=== PATIENT | male | born 1950 | race Caucasian/White ===

== ENCOUNTER 2022-10-13 00:12 | Inpatient (IN) | payer MEDICARE, MEDICAID ==
[~2022-10-13] VITALS: Ht 167.6 cm; Wt 74.4 kg
[2022-10-13] MEDS ORDERED: NITROGLYCERIN 0.4MG TABLET SL SL PRN (00:30)
[2022-10-13] MEDS ORDERED: ASPIRIN 81MG TABLET PO ONE (00:30)
[2022-10-13 00:39] LABS: BASOPHILS % 0.7 % (0.0-2.0); EOSINOPHILS % 2.8 % (0.0-5.0); HEMATOCRIT. 44.9 % (42.0-52.0); HEMOGLOBIN. 15.6 g/dL (14.0-18.0); LYMPHOCYTES % 50.3 % (20.0-50.0); MEAN CORPUSCULAR HEMOGLOBIN 33.1 pg (28.0-32.0); MEAN CORPUSCULAR VOLUME 95.6 fL (80.0-94.0); MEAN PLATELET VOLUME 8.2 fl (7.4-10.4); MONOCYTES % 10.9 % (2.0-8.0); NEUTROPHILS % 35.3 % (40.0-76.0); PLATELET 293 x1000/uL (130-400); RED CELL DISTRIBUTION WIDTH 13.4 % (11.6-14.6)
[2022-10-13 00:46] LABS: CHLORIDE 103 mEq/L (98-107)
[2022-10-13] MEDS ORDERED: DEXTROSE 50% WATER 50ML SYRINGE IV PRN (03:00)
[2022-10-13] MEDS ORDERED: MAGNESIUM/ALUMINUM HYDROXIDE/SIMETHICONE 30ML UDC PO PRN (03:00)
[2022-10-13] MEDS ORDERED: ZOLPIDEM TARTRATE 5MG TABLET PO PRN (03:00)
[2022-10-13] MEDS ORDERED: ONDANSETRON HCL 4MG/2ML INJ IV PRN (03:00)
[2022-10-13] MEDS ORDERED: MORPHINE SULFATE 4 MG/ML CPJ (NOT FOR IM USE) IV PRN (03:00)
[2022-10-13] MEDS ORDERED: DIPHENHYDRAMINE 50MG/ML VIAL IV PRN (03:00)
[2022-10-13] MEDS ORDERED: HYDRALAZINE 20MG/ML VIAL IV PRN (03:00)
[2022-10-13] MEDS ORDERED: CLONIDINE 0.1MG TABLET PO PRN (03:00)
[2022-10-13] MEDS ORDERED: ACETAMINOPHEN 325MG TABLET PO PRN (03:00)
[2022-10-13] MEDS ORDERED: ASPIRIN 81MG TABLET PO NR (03:30)
[2022-10-13 03:55] VITALS: BP 159/89
[2022-10-13] MEDS: SODIUM CHLORIDE 0.9% INJ 3ML FLUSH IVF SCH ×3 (06:03→20:44)
[2022-10-13] MEDS: BLOOD SUGAR DIAGNOSTIC STRIP TEST SCH ×4 (06:33→20:40)
[2022-10-13] MEDS: INSULIN LISPRO 100 UNITS/ML SUBCUT SCH ×4 (07:20→20:42)
[2022-10-13 08:12] VITALS: BP 152/78
[2022-10-13] MEDS: AMLODIPINE 5MG TABLET PO SCH ×2 (08:50→20:40)
[2022-10-13] MEDS: ASPIRIN 81MG EC TABLET PO SCH (08:51)
[2022-10-13] MEDS ORDERED: ENOXAPARIN 30MG/0.3ML SYR SUBCUT SCH (09:00)
[2022-10-13 11:50] VITALS: BP 148/86
[2022-10-13] MEDS ORDERED: LIDOCAINE HCL/PF 1% 10 MG/ML 5ML VIAL ONE (13:11)
[2022-10-13] MEDS ORDERED: VERAPAMIL HCL 2.5 MG/1 ML 2ML VIAL IV ONE (13:11)
[2022-10-13] MEDS ORDERED: IODIXANOL 320MG/ML 100 ML BOTTLE IV ONE (13:11)
[2022-10-13] MEDS ORDERED: DIPHENHYDRAMINE 50MG/ML VIAL ONE (13:11)
[2022-10-13] MEDS ORDERED: HEPARIN 1000 UNITS/ML 10ML ONE (13:12)
[2022-10-13 13:26] LABS: HEPATITIS B SURFACE ANTIGEN NEGATIVE
[2022-10-13] MEDS ORDERED: FENTANYL CITRATE/PF 50MCG/ML 2ML VIAL ONE (13:49)
[2022-10-13] MEDS ORDERED: MIDAZOLAM HCL 2 MG/2 ML VIAL ONE (13:49)
[2022-10-13] MEDS ORDERED: ATROPINE SULFATE 1MG/10ML SYR IV PRN (15:00)
[2022-10-13] MEDS ORDERED: SODIUM CHLORIDE 0.45% 250 ML IV SCH (15:00)
[2022-10-13] MEDS ORDERED: SODIUM CHLORIDE 0.45% 250 ML IV ONE (15:15)
[2022-10-13 15:59] VITALS: BP 143/81
[2022-10-13 20:00] VITALS: BP 134/67
[2022-10-13] MEDS: ATORVASTATIN CALCIUM 20MG TABLET PO SCH (20:40)
[2022-10-13] MEDS: CARVEDILOL 12.5MG TABLET PO SCH (20:40)
[2022-10-14] VITALS: BP 112/66
[2022-10-14 04:08] VITALS: BP 131/94
[2022-10-14] MEDS ORDERED: METF-874 PO (04:17)
[2022-10-14] MEDS: BLOOD SUGAR DIAGNOSTIC STRIP TEST SCH ×4 (06:35→21:00)
[2022-10-14] MEDS: INSULIN LISPRO 100 UNITS/ML SUBCUT SCH ×4 (06:35→21:00)
[2022-10-14] MEDS: SODIUM CHLORIDE 0.9% INJ 3ML FLUSH IVF SCH ×3 (06:36→21:32)
[2022-10-14 06:56] LABS: BASOPHILS % 0.8 % (0.0-2.0); EOSINOPHILS % 2.1 % (0.0-5.0); HEMATOCRIT. 46.4 % (42.0-52.0); HEMOGLOBIN. 16.3 g/dL (14.0-18.0); LYMPHOCYTES % 35.8 % (20.0-50.0); MEAN CORPUSCULAR HEMOGLOBIN 33.2 pg (28.0-32.0); MEAN CORPUSCULAR VOLUME 94.4 fL (80.0-94.0); MEAN PLATELET VOLUME 8.4 fl (7.4-10.4); MONOCYTES % 10.4 % (2.0-8.0); NEUTROPHILS % 50.9 % (40.0-76.0); PLATELET 304 x1000/uL (130-400); RED BLOOD CELL COUNT 4.92 mill/uL (4.7-6.1); RED CELL DISTRIBUTION WIDTH 13.5 % (11.6-14.6)
[2022-10-14 08:00] VITALS: BP 114/59
[2022-10-14 08:05] LABS: CHLORIDE 103 mEq/L (98-107)
[2022-10-14] MEDS: ASPIRIN 81MG EC TABLET PO SCH (08:37)
[2022-10-14] MEDS: AMLODIPINE 5MG TABLET PO SCH ×2 (08:37→21:30)
[2022-10-14] MEDS: CARVEDILOL 12.5MG TABLET PO SCH ×2 (08:37→21:30)
[2022-10-14] MEDS: ENOXAPARIN 40MG/0.4ML SYR SUBCUT SCH (08:38)
[2022-10-14 12:00] VITALS: BP 115/61
[2022-10-14] MEDS ORDERED: NALOXONE HCL 0.4MG/ML VIAL IV PRN (15:00)
[2022-10-14 16:00] VITALS: BP 112/69
[2022-10-14 19:59] VITALS: BP 131/45
[2022-10-14] MEDS: ATORVASTATIN CALCIUM 20MG TABLET PO SCH (21:30)
[2022-10-15] VITALS: BP 117/81
[2022-10-15] MEDS: ACETAMINOPHEN 325MG TABLET PO PRN ×2 (02:54→16:09)
[2022-10-15 03:59] VITALS: BP 109/67
[2022-10-15] MEDS: SODIUM CHLORIDE 0.9% INJ 3ML FLUSH IVF SCH ×2 (06:00→13:31)
[2022-10-15] MEDS: BLOOD SUGAR DIAGNOSTIC STRIP TEST SCH ×2 (06:50→11:50)
[2022-10-15] MEDS: INSULIN LISPRO 100 UNITS/ML SUBCUT SCH ×2 (06:59→13:15)
[2022-10-15 08:00] VITALS: BP 131/75
[2022-10-15] MEDS: CARVEDILOL 12.5MG TABLET PO SCH (08:43)
[2022-10-15] MEDS: ASPIRIN 81MG EC TABLET PO SCH (08:43)
[2022-10-15] MEDS: AMLODIPINE 5MG TABLET PO SCH (08:44)
[2022-10-15] MEDS: ENOXAPARIN 40MG/0.4ML SYR SUBCUT SCH (08:44)
[2022-10-15 12:00] VITALS: BP 126/79
[2022-10-15 15:31] VITALS: BP 126/79
[2022-10-15 16:00] VITALS: BP 125/79
== END 2022-10-15 16:55 | disposition home or self-care (01) | DRG 287 ==
LOC: ER 00:29 → 3WST 02:08 → EDBEDREQ 02:11 → ENRESERV 02:21
PROVIDERS: ADMIT Internal Medicine; ATTEND Internal Medicine
PROC: 4A023N7 Measurement of Cardiac Sampling and Pressure, Left Heart, Percutaneous Approach (ICD-10-PCS; principal; 2022-10-13)
PROC: B211YZZ Fluoroscopy of Multiple Coronary Arteries using Other Contrast (ICD-10-PCS; 2022-10-13)
DX: I25.110 Atherosclerotic heart disease of native coronary artery with unstable angina pectoris (principal); E78.5 Hyperlipidemia, unspecified; I10 Essential (primary) hypertension; I16.0 Hypertensive urgency; E11.40 Type 2 diabetes mellitus with diabetic neuropathy, unspecified; E78.00 Pure hypercholesterolemia, unspecified; Z79.02 Long term (current) use of antithrombotics/antiplatelets; Z79.82 Long term (current) use of aspirin; Z95.1 Presence of aortocoronary bypass graft; Z95.5 Presence of coronary angioplasty implant and graft; Z83.3 Family history of diabetes mellitus; Z82.49 Family history of ischemic heart disease and other diseases of the circulatory system
CPT/HCPCS: 36415; 71045; 80048; 80053; 80061; 82962; 83036; 83880; 84484; 85025; 86803; 87340; 93005; 93306; 93458; 93880; 93970; 99285; C1769; C1887; C1893; J1200; J1644; J1650; J1815; J2250; J3010; J3490; Q9967

== ENCOUNTER 2022-10-24 08:57 | Inpatient (IN) | payer MEDICARE, MEDICAID ==
[~2022-10-24] VITALS: Ht 160 cm; Wt 73.5 kg
[2022-10-24] VITALS (34 sets, daily range): BP systolic 96–134; BP diastolic 26–217
[~2022-10-24 08:57] MED LIST: ACETAMINOPHEN 325MG TABLET PO PRN; ALBUMIN HUMAN 25GM/500ML (5%) IV ONE; ASPI-1497 PO; CARV25TA47 PO; DOPAMINE 400MG/250ML PREMIX 250 ML IV ONE; EMPA10TA PO; HEPARIN 1000 UNITS/ML 10ML ONE; LISI20TA31 PO; MAGNESIUM SULFATE 1G IN DEXT 5% 100ML PREMIX IV ONE; METF-416 PO; NICARDIPINE 40MG/200ML PREMIX 200 ML IV ONE; NITROGLYCERIN 0.4MG TABLET SL SL PRN; POLYMYXIN B SULFATE 500000 UNITS/VIAL ONE; ROSU40TA PO; SEVOFLURANE 250 ML LIQUID INH ONE; SKIN ADHESIVE 0.7 GM EA TOP ONE; THROMBIN (BOVINE) 5000 UNITS/VIAL TOP ONE
[2022-10-24] MEDS ORDERED: MAGNESIUM SULFATE 5GM/10ML VIAL IV ONE (09:00)
[2022-10-24] MEDS ORDERED: CHLORHEXIDINE GLUCONATE 4% EXTERNAL USE TOP SCH ×2 (09:00→21:00)
[2022-10-24] MEDS ORDERED: CALCIUM CHLORIDE 1GM/10ML SYR IV ONE (09:00)
[2022-10-24] MEDS ORDERED: POTASSIUM CHLORIDE 40MEQ/20ML INJ IV ONE (09:00)
[2022-10-24] MEDS ORDERED: ALBUMIN HUMAN 25GM/100ML (25%) IV ONE (09:00)
[2022-10-24] MEDS ORDERED: HEPARIN 10,000 UNITS/ML VIAL ONE (09:00)
[2022-10-24 09:07] LABS: CLARITY URINE CLEAR (CLEAR); COLOR URINE YELLOW (YELLOW); KETONES URINE NEGATIVE (NEGATIVE); LEUKOCYTE ESTERASE URINE NEGATIVE (NEGATIVE); NITRITE URINE NEGATIVE (NEGATIVE); OCCULT BLOOD URINE NEGATIVE (NEGATIVE); PROTEIN URINE NEGATIVE (NEGATIVE); SPECIFIC GRAVITY URINE 1.019 (1.005-1.030)
[2022-10-24 09:11] LABS: BASOPHILS % 0.8 % (0.0-2.0); EOSINOPHILS % 2.1 % (0.0-5.0); HEMATOCRIT. 47.1 % (42.0-52.0); HEMOGLOBIN. 16.5 g/dL (14.0-18.0); LYMPHOCYTES % 39.1 % (20.0-50.0); MEAN CORPUSCULAR HEMOGLOBIN 33.1 pg (28.0-32.0); MEAN CORPUSCULAR VOLUME 94.7 fL (80.0-94.0); MEAN PLATELET VOLUME 7.9 fl (7.4-10.4); MONOCYTES % 9.7 % (2.0-8.0); NEUTROPHILS % 48.3 % (40.0-76.0); PLATELET 453 x1000/uL (130-400); RED BLOOD CELL COUNT 4.98 mill/uL (4.7-6.1); RED CELL DISTRIBUTION WIDTH 13.1 % (11.6-14.6)
[2022-10-24 09:14] LABS: CHLORIDE 102 mEq/L (98-107)
[2022-10-24 09:30] LABS: INR 1.1; PARTIAL THROMBOPLASTIN TIME 31.3 sec (23.4-31.0); PROTHROMBIN TIME 11.4 sec (9.6-11.0)
[2022-10-24] MEDS ORDERED: SODIUM CHLORIDE 0.9% 1,000 ML IV SCH (09:30)
[2022-10-24] MEDS ORDERED: DOBUTAMINE 250MG PREMIX 250 ML IV PRN (10:00)
[2022-10-24] MEDS ORDERED: INSULIN REGULAR (DRIP) 100 UNITS in SODIUM CHLORIDE 0.9% 99 ML IV PRN (10:00)
[2022-10-24] MEDS ORDERED: NICARDIPINE 40MG/200ML PREMIX 200 ML IV PRN (10:00)
[2022-10-24] MEDS ORDERED: PAPAVERINE HCL 180MG in SODIUM CHLORIDE 0.9% 24ML IV NR (10:00)
[2022-10-24] MEDS ORDERED: CEFAZOLIN 2,000 MG in DEXT 5% WATER 100 ML IV NR (10:00)
[2022-10-24] MEDS ORDERED: DEL NIDO ELECTROLYTE-S(PH 7.4) 1,000 ML IV NR ×2 (10:00)
[2022-10-24] MEDS ORDERED: NOREPINEPHRINE 8 MG in DEXT 5% WATER 242 ML IV PRN (10:00)
[2022-10-24] MEDS ORDERED: EPINEPHRINE 5 MG in DEXT 5% WATER 245 ML IV PRN ×2 (10:00→15:30)
[2022-10-24] MEDS ORDERED: GLIP10TA10 PO (11:26)
[2022-10-24] MEDS ORDERED: NITR0.4T49 SL (11:26)
[2022-10-24] MEDS ORDERED: ROCURONIUM BROMIDE 10MG/ML VIAL 5ML IV ONE (12:26)
[2022-10-24] MEDS ORDERED: GLYCOPYRROLATE 0.2 MG/ML 2ML VIAL ONE ×2 (13:45→15:03)
[2022-10-24] MEDS ORDERED: DEXMEDETOMIDINE 400 MCG/100 ML 100 ML IV ONE (13:55)
[2022-10-24] MEDS ORDERED: DEXAMETHASONE 4MG/ML 1ML VIAL ONE (13:55)
[2022-10-24] MEDS ORDERED: PROTAMINE SULFATE 10MG/ML VIAL 25ML IV ONE (13:55)
[2022-10-24] MEDS ORDERED: KCL 10MEQ/50ML PREMIX 150 ML IV PRN (14:15)
[2022-10-24] MEDS ORDERED: KCL 10MEQ/50ML PREMIX 100 ML IV PRN (14:15)
[2022-10-24] MEDS ORDERED: MAGNESIUM SULFATE 3 GM in DEXT 5% WATER 100 ML IV PRN ×2 (14:15→15:15)
[2022-10-24] MEDS ORDERED: KCL 10MEQ/50ML PREMIX 200 ML IV PRN (14:15)
[2022-10-24] MEDS ORDERED: DEXTROSE 50% WATER 50ML SYRINGE IV PRN ×2 (14:15)
[2022-10-24] MEDS ORDERED: MAGNESIUM 1 G PREMIX 100 ML IV PRN ×2 (14:15→15:15)
[2022-10-24] MEDS ORDERED: MAGNESIUM 2 G PREMIX 50 ML IV PRN (14:15)
[2022-10-24] MEDS ORDERED: PROPOFOL 200MG/20ML VIAL IV ONE (14:46)
[2022-10-24] MEDS ORDERED: NEOSTIGMINE METHYLSULFATE 1MG/ML 10 ML VIAL ONE (15:02)
[2022-10-24] MEDS ORDERED: FENTANYL CITRATE/PF 50MCG/ML 2ML VIAL ONE (15:09)
[2022-10-24] MEDS ORDERED: ALBUTEROL 6.7GM HFA INHALER ONE (15:12)
[2022-10-24] MEDS ORDERED: CALCIUM CHLORIDE 3,000 MG in DEXT 5% WATER 250 ML IV PRN (15:15)
[2022-10-24] MEDS ORDERED: CALCIUM CHLORIDE 5,000 MG in DEXT 5% WATER 500 ML IV PRN (15:15)
[2022-10-24] MEDS ORDERED: ALBUMIN HUMAN 12.5G/250ML (5%) IV PRN (15:15)
[2022-10-24] MEDS ORDERED: ONDANSETRON HCL 4MG/2ML INJ IV PRN (15:15)
[2022-10-24] MEDS ORDERED: ACETAMINOPHEN 325MG TABLET PO PRN (15:15)
[2022-10-24] MEDS ORDERED: ALBUMIN HUMAN 25GM/100ML (25%) IV PRN (15:15)
[2022-10-24] MEDS ORDERED: SODIUM CHLORIDE 0.9% 500 ML IV PRN (15:30)
[2022-10-24] MEDS ORDERED: DOPAMINE 400MG/250ML PREMIX 250 ML IV SCH (15:30)
[2022-10-24] MEDS ORDERED: NALOXONE HCL 0.4MG/ML VIAL IV PRN (15:45)
[2022-10-24 15:55] LABS: BG BASE EXCESS -0.7 mmol/L (-2.0-2.0); BG CARBOXYHEMOGLOBIN 1.4 % (0.5-1.5); BG DEOXYHEMOGLOBIN 7.7 % (0.0-5.0); BG FRACTION INSPIRED OXYGEN 100; BG HCO3 ACT 26.7 mmol/L (22.0-26.0); BG METHEMOGLOBIN 0.3 % (0.0-1.5); BG OXYGEN SATURATION 92.2 % (92.0-98.5); BG OXYHEMOGLOBIN 90.6 % (94.0-97.0); BG PCO2 54.8 mmHg (35.0-45.0); BG PH 7.306 (7.350-7.450); BG PO2 72.4 mmHg (75.0-100.0); BG SAMPLE SITE ALINE; BG TOTAL HEMOGLOBIN 15.1 g/dL (12.0-18.0); BG VENT MODE MASK - NRB
[2022-10-24 16:00] LABS: BASOPHILS % 0.2 % (0.0-2.0); EOSINOPHILS % 0.4 % (0.0-5.0); HEMATOCRIT. 42.2 % (42.0-52.0); HEMOGLOBIN. 14.3 g/dL (14.0-18.0); LYMPHOCYTES % 14.3 % (20.0-50.0); MEAN CORPUSCULAR HEMOGLOBIN 32.2 pg (28.0-32.0); MEAN CORPUSCULAR VOLUME 95.1 fL (80.0-94.0); MONOCYTES % 2.6 % (2.0-8.0); NEUTROPHILS % 82.5 % (40.0-76.0); PLATELET 467 x1000/uL (130-400); RED BLOOD CELL COUNT 4.43 mill/uL (4.7-6.1); RED CELL DISTRIBUTION WIDTH 12.9 % (11.6-14.6)
[2022-10-24 16:07] LABS: CHLORIDE 109 mEq/L (98-107)
[2022-10-24] MEDS: BLOOD SUGAR DIAGNOSTIC STRIP TEST SCH ×6 (16:08→22:04)
[2022-10-24] MEDS: DEXT 5%/0.45% NACL 1000ML 1,000 ML IV SCH (16:09)
[2022-10-24] MEDS: DOPAMINE 400MG/250ML PREMIX 250 ML IV PRN (16:10)
[2022-10-24] MEDS: BACITRACIN 15GM TUBE TOP SCH (16:42)
[2022-10-24] MEDS: DOCUSATE SODIUM 100MG CAPSULE PO SCH (16:42)
[2022-10-24] MEDS: MAGNESIUM 2 G PREMIX 50 ML IV PRN ×2 (16:59→18:59)
[2022-10-24] MEDS ORDERED: THROMBIN (BOVINE) 5000 UNITS/VIAL TOP ONE (17:08)
[2022-10-24] MEDS: MORPHINE SULFATE 2 MG/ML CPJ (NOT FOR IM USE) IV PRN (17:13)
[2022-10-24] MEDS: INSULIN REGULAR (DRIP) 100 UNITS in SODIUM CHLORIDE 0.9% 99 ML IV SCH (17:32)
[2022-10-24] MEDS: MAGNESIUM HYDROXIDE 400MG/5ML 30ML UDC PO SCH ×2 (18:23→22:04)
[2022-10-24] MEDS: ALBUMIN HUMAN 25GM/100ML (25%) IV SCH ×2 (18:40→20:32)
[2022-10-24] MEDS: OXYCODONE HCL/ACETAMINOPHEN 5/325MG TABLET PO PRN (20:31)
[2022-10-24] MEDS ORDERED: ALLOPURINOL 300 MG TABLET PO SCH (21:00)
[2022-10-24] MEDS ORDERED: ASCORBIC ACID 500 MG TABLET PO SCH (21:00)
[2022-10-24] MEDS ORDERED: DOCUSATE SODIUM 100MG CAPSULE PO SCH (21:00)
[2022-10-24] MEDS: CEFAZOLIN 1000MG PREMIX 50 ML IV SCH (22:03)
[2022-10-24] MEDS: KETOROLAC 15MG/ML VIAL IV PRN (22:14)
[2022-10-25] VITALS (85 sets, daily range): BP systolic 79–134; BP diastolic 39–70
[2022-10-25] MEDS: BLOOD SUGAR DIAGNOSTIC STRIP TEST SCH ×8 (00:10→21:15)
[2022-10-25] MEDS: ALBUMIN HUMAN 25GM/100ML (25%) IV SCH (00:12)
[2022-10-25 01:00] LABS: HEMATOCRIT. 36.9 % (42.0-52.0); HEMOGLOBIN. 12.5 g/dL (14.0-18.0); LYMPHOCYTES % 8.8 % (20.0-50.0); MEAN CORPUSCULAR HEMOGLOBIN 32.2 pg (28.0-32.0); MEAN CORPUSCULAR VOLUME 95.1 fL (80.0-94.0); MEAN PLATELET VOLUME 8.3 fl (7.4-10.4); MONOCYTES % 4.6 % (2.0-8.0); NEUTROPHILS % 86.6 % (40.0-76.0); PLATELET 380 x1000/uL (130-400); RED BLOOD CELL COUNT 3.88 mill/uL (4.7-6.1); RED CELL DISTRIBUTION WIDTH 12.8 % (11.6-14.6)
[2022-10-25 01:08] LABS: CHLORIDE 107 mEq/L (98-107)
[2022-10-25 01:13] LABS: PHOSPHORUS 2.7 mg/dL (2.5-4.9)
[2022-10-25] MEDS: MAGNESIUM 2 G PREMIX 50 ML IV PRN (01:57)
[2022-10-25] MEDS: MAGNESIUM HYDROXIDE 400MG/5ML 30ML UDC PO SCH ×5 (01:58→17:59)
[2022-10-25] MEDS: DOPAMINE 400MG/250ML PREMIX 250 ML IV PRN (02:02)
[2022-10-25] MEDS: INSULIN REGULAR (DRIP) 100 UNITS in SODIUM CHLORIDE 0.9% 99 ML IV SCH (02:03)
[2022-10-25] MEDS: OXYCODONE HCL/ACETAMINOPHEN 5/325MG TABLET PO PRN ×2 (04:38→19:01)
[2022-10-25 05:01] LABS: HEMATOCRIT. 36.7 % (42.0-52.0); HEMOGLOBIN. 12.5 g/dL (14.0-18.0); LYMPHOCYTES % 10.1 % (20.0-50.0); MEAN CORPUSCULAR HEMOGLOBIN 32.5 pg (28.0-32.0); MEAN CORPUSCULAR VOLUME 95.1 fL (80.0-94.0); MONOCYTES % 7.9 % (2.0-8.0); PLATELET 373 x1000/uL (130-400); RED BLOOD CELL COUNT 3.85 mill/uL (4.7-6.1); RED CELL DISTRIBUTION WIDTH 12.9 % (11.6-14.6)
[2022-10-25 05:05] LABS: CHLORIDE 106 mEq/L (98-107)
[2022-10-25] MEDS: CEFAZOLIN 1000MG PREMIX 50 ML IV SCH ×3 (07:06→22:39)
[2022-10-25] MEDS ORDERED: FUROSEMIDE 40MG/4ML VIAL IVP NR (08:00)
[2022-10-25] MEDS: IPRATROPIUM/ALBUTEROL 0.5-3(2.5)MG/3ML NEB HHN SCH ×4 (08:00→20:17)
[2022-10-25] MEDS ORDERED: DEXTROSE 50% WATER 50ML SYRINGE IV PRN (08:30)
[2022-10-25] MEDS: FAMOTIDINE 20MG/2ML VIAL IV SCH (08:45)
[2022-10-25] MEDS: DOCUSATE SODIUM 100MG CAPSULE PO SCH ×2 (08:46→17:59)
[2022-10-25] MEDS ORDERED: AMIODARONE HCL 50MG/ML 3ML VIAL IV ONE (10:15)
[2022-10-25] MEDS: BACITRACIN 15GM TUBE TOP SCH ×2 (10:18→17:59)
[2022-10-25] MEDS ORDERED: AMIODARONE HCL 150 MG in DEXT 5% WATER 100 ML IV NR (12:00)
[2022-10-25] MEDS: INSULIN LISPRO 100 UNITS/ML SUBCUT SCH ×3 (12:06→21:16)
[2022-10-25] MEDS: KETOROLAC 15MG/ML VIAL IV PRN (12:24)
[2022-10-25] MEDS: DEXT 5%/0.45% NACL 1000ML 1,000 ML IV SCH (15:50)
[2022-10-25] MEDS ORDERED: BLOOD SUGAR DIAGNOSTIC STRIP TEST SCH (18:00)
[2022-10-25] MEDS: AMIODARONE HCL 200 MG TABLET PO SCH (21:00)
[2022-10-25] MEDS: METFORMIN HCL 500MG TABLET PO SCH (22:39)
[2022-10-26] VITALS: BP 101/61
[2022-10-26] MEDS: IPRATROPIUM/ALBUTEROL 0.5-3(2.5)MG/3ML NEB HHN SCH ×6 (00:43→22:05)
[2022-10-26] MEDS: OXYCODONE HCL/ACETAMINOPHEN 5/325MG TABLET PO PRN ×2 (02:20→18:16)
[2022-10-26 04:00] VITALS: BP 87/50
[2022-10-26] MEDS ORDERED: ALBUMIN HUMAN 25GM/100ML (25%) IV NR (04:30)
[2022-10-26] MEDS: MIDODRINE HCL 5MG TABLET PO SCH ×5 (04:50→21:58)
[2022-10-26] MEDS ORDERED: DEXT 5% IV PRN (05:30)
[2022-10-26] MEDS ORDERED: WATER IV PRN (05:30)
[2022-10-26] MEDS ORDERED: CALCIUM CHLORIDE IV PRN (05:30)
[2022-10-26] MEDS: BLOOD SUGAR DIAGNOSTIC STRIP TEST SCH ×4 (07:12→21:51)
[2022-10-26] MEDS: GLIPIZIDE 10MG TABLET PO SCH (07:23)
[2022-10-26 07:28] LABS: BASOPHILS % 0.2 % (0.0-2.0); EOSINOPHILS % 0.1 % (0.0-5.0); HEMATOCRIT. 32.1 % (42.0-52.0); HEMOGLOBIN. 10.9 g/dL (14.0-18.0); LYMPHOCYTES % 25.5 % (20.0-50.0); MEAN CORPUSCULAR HEMOGLOBIN 32.5 pg (28.0-32.0); MEAN CORPUSCULAR VOLUME 96.1 fL (80.0-94.0); MEAN PLATELET VOLUME 8.4 fl (7.4-10.4); MONOCYTES % 9.7 % (2.0-8.0); NEUTROPHILS % 64.5 % (40.0-76.0); PLATELET 314 x1000/uL (130-400); RED BLOOD CELL COUNT 3.34 mill/uL (4.7-6.1); RED CELL DISTRIBUTION WIDTH 13.2 % (11.6-14.6)
[2022-10-26 07:47] LABS: CHLORIDE 98 mEq/L (98-107)
[2022-10-26 08:00] VITALS: BP 119/65
[2022-10-26] MEDS: METFORMIN HCL 500MG TABLET PO SCH ×2 (08:05→17:20)
[2022-10-26] MEDS: INSULIN LISPRO 100 UNITS/ML SUBCUT SCH ×4 (08:06→21:59)
[2022-10-26] MEDS: BACITRACIN 15GM TUBE TOP SCH ×2 (09:00→17:28)
[2022-10-26] MEDS ORDERED: CLOPIDOGREL 75MG TABLET PO SCH (09:00)
[2022-10-26] MEDS: FAMOTIDINE 20MG/2ML VIAL IV SCH (10:16)
[2022-10-26] MEDS: DOCUSATE SODIUM 100MG CAPSULE PO SCH ×2 (10:16→17:00)
[2022-10-26] MEDS: AMIODARONE HCL 200 MG TABLET PO SCH ×2 (10:17→21:58)
[2022-10-26] MEDS ORDERED: FUROSEMIDE 40MG/4ML VIAL IVP NR ×2 (11:45→18:30)
[2022-10-26 12:00] VITALS: BP 110/57
[2022-10-26 16:00] VITALS: BP 154/87
[2022-10-26 16:24] LABS: HEMATOCRIT 38.8 % (42.0-52.0); HEMOGLOBIN 13.1 g/dL (14.0-18.0)
[2022-10-26 20:00] VITALS: BP 147/79
[2022-10-26] MEDS: MORPHINE SULFATE 2 MG/ML CPJ (NOT FOR IM USE) IV PRN (20:15)
[2022-10-27] VITALS: BP 134/60
[2022-10-27] MEDS: IPRATROPIUM/ALBUTEROL 0.5-3(2.5)MG/3ML NEB HHN SCH ×6 (01:02→20:08)
[2022-10-27 04:00] VITALS: BP 103/54
[2022-10-27] MEDS: GLIPIZIDE 10MG TABLET PO SCH (06:55)
[2022-10-27] MEDS: BLOOD SUGAR DIAGNOSTIC STRIP TEST SCH ×4 (06:55→21:00)
[2022-10-27 07:56] LABS: BASOPHILS % 0.1 % (0.0-2.0); HEMATOCRIT. 34.8 % (42.0-52.0); HEMOGLOBIN. 11.9 g/dL (14.0-18.0); LYMPHOCYTES % 22.8 % (20.0-50.0); MEAN CORPUSCULAR HEMOGLOBIN 32.4 pg (28.0-32.0); MEAN CORPUSCULAR VOLUME 94.9 fL (80.0-94.0); MEAN PLATELET VOLUME 8.4 fl (7.4-10.4); NEUTROPHILS % 67.1 % (40.0-76.0); PLATELET 334 x1000/uL (130-400); RED BLOOD CELL COUNT 3.67 mill/uL (4.7-6.1); RED CELL DISTRIBUTION WIDTH 12.8 % (11.6-14.6)
[2022-10-27 08:00] VITALS: BP 107/59
[2022-10-27] MEDS: METFORMIN HCL 500MG TABLET PO SCH ×2 (08:44→17:36)
[2022-10-27] MEDS: INSULIN LISPRO 100 UNITS/ML SUBCUT SCH ×4 (08:44→22:16)
[2022-10-27] MEDS: BACITRACIN 15GM TUBE TOP SCH ×2 (09:00→17:27)
[2022-10-27] MEDS: AMIODARONE HCL 200 MG TABLET PO SCH ×2 (10:43→22:15)
[2022-10-27] MEDS: MIDODRINE HCL 5MG TABLET PO SCH ×4 (10:43→22:15)
[2022-10-27] MEDS: DOCUSATE SODIUM 100MG CAPSULE PO SCH ×2 (10:43→17:36)
[2022-10-27] MEDS: INSULIN GLARGINE 100 UNITS/ML SUBCUT SCH (10:43)
[2022-10-27] MEDS ORDERED: FUROSEMIDE 40MG/4ML VIAL IVP NR (11:48)
[2022-10-27 12:00] VITALS: BP 108/80
[2022-10-27] MEDS: OXYCODONE HCL/ACETAMINOPHEN 5/325MG TABLET PO PRN (12:46)
[2022-10-27] MEDS: FAMOTIDINE 20MG TABLET PO SCH (12:47)
[2022-10-27] MEDS ORDERED: MAGNESIUM 2 G PREMIX 50 ML IV NR (13:00)
[2022-10-27 16:00] VITALS: BP 113/86
[2022-10-27 20:00] VITALS: BP 105/74
[2022-10-28] VITALS: BP 114/77
[2022-10-28] MEDS: IPRATROPIUM/ALBUTEROL 0.5-3(2.5)MG/3ML NEB HHN SCH ×4 (00:07→12:00)
[2022-10-28 04:00] VITALS: BP 113/68
[2022-10-28] MEDS: GLIPIZIDE 10MG TABLET PO SCH (06:18)
[2022-10-28] MEDS: BLOOD SUGAR DIAGNOSTIC STRIP TEST SCH ×3 (06:18→17:00)
[2022-10-28] MEDS: INSULIN LISPRO 100 UNITS/ML SUBCUT SCH ×4 (07:20→17:20)
[2022-10-28 07:30] VITALS: BP 108/51
[2022-10-28] MEDS ORDERED: FUROSEMIDE 100MG/10ML VIAL IVP NR (07:30)
[2022-10-28] MEDS: DOCUSATE SODIUM 100MG CAPSULE PO SCH ×2 (08:38→17:00)
[2022-10-28] MEDS: AMIODARONE HCL 200 MG TABLET PO SCH (08:38)
[2022-10-28] MEDS: FAMOTIDINE 20MG TABLET PO SCH (08:38)
[2022-10-28] MEDS: METFORMIN HCL 500MG TABLET PO SCH ×2 (08:38→17:39)
[2022-10-28] MEDS: MIDODRINE HCL 5MG TABLET PO SCH ×3 (08:51→17:39)
[2022-10-28 11:43] VITALS: BP 141/48
[2022-10-28] MEDS: INSULIN GLARGINE 100 UNITS/ML SUBCUT SCH (12:32)
[2022-10-28 16:00] VITALS: BP 119/56
[2022-10-28 16:34] VITALS: BP 119/56
[2022-10-28] MEDS: BACITRACIN 15GM TUBE TOP SCH ×2 (17:39→17:40)
[2022-10-28] MEDS ORDERED: IPRATROPIUM/ALBUTEROL 0.5-3(2.5)MG/3ML NEB HHN SCH (18:00)
== END 2022-10-28 19:18 | DRG 235 ==
LOC: OR 08:57 → CVICU 16:11 → 3WST 10-25 21:51
PROVIDERS: ADMIT Internal Medicine; ATTEND Internal Medicine
PROC: 0210099 Bypass Coronary Artery, One Artery from Left Internal Mammary with Autologous Venous Tissue, Open Approach (ICD-10-PCS; principal; 2022-10-24)
PROC: 021109W Bypass Coronary Artery, Two Arteries from Aorta with Autologous Venous Tissue, Open Approach (ICD-10-PCS; 2022-10-24)
PROC: 06BQ4ZZ Excision of Left Saphenous Vein, Percutaneous Endoscopic Approach (ICD-10-PCS; 2022-10-24)
PROC: 5A12012 Performance of Cardiac Output, Single, Manual (ICD-10-PCS; 2022-10-24)
DX: I25.110 Atherosclerotic heart disease of native coronary artery with unstable angina pectoris (principal); J96.90 Respiratory failure, unspecified, unspecified whether with hypoxia or hypercapnia; I50.30 Unspecified diastolic (congestive) heart failure; E11.40 Type 2 diabetes mellitus with diabetic neuropathy, unspecified; E78.5 Hyperlipidemia, unspecified; D64.9 Anemia, unspecified; E78.00 Pure hypercholesterolemia, unspecified; Z20.822 Contact with and (suspected) exposure to COVID-19; R33.9 Retention of urine, unspecified; I25.2 Old myocardial infarction; I11.0 Hypertensive heart disease with heart failure; Z83.3 Family history of diabetes mellitus; Z82.49 Family history of ischemic heart disease and other diseases of the circulatory system
CPT/HCPCS: 36415; 36600; 71045; 80048; 80053; 81003; 82375; 82805; 82962; 83036; 83735; 84100; 84443; 85014; 85018; 85025; 85347; 86850; 86900; 86920; 87426; 93005; 93308; 94640; 97110; 97116; 97162; 97166; 97530; C1729; C1751; C1758; C9803; J0282; J0690; J1100; J1265; J1644; J1815; J1885; J1940; J2270; J2440; J2704; J2710; J2720; J3010; J3475; J3480; J3490; J7050; J7060; L3908; P9041; P9047; Q9957; A4315